=== PATIENT | male | born 1935 | race Caucasian/White ===

== ENCOUNTER 2017-06-30 03:14 | Inpatient (IN) | payer OTHER ==
[~2017-06-30] VITALS: Ht 165.1 cm; Wt 79.8 kg
[~2017-06-30 03:14] MED LIST: AUGMENTIN 500-1 EACH; CELEBREX200 M1 PO; COUMADIN2.5 M1 PO; COUMADIN5 M2 PO; DOCUSATE SODIU100 M3 PO; ELIQUIS2.5 M1 PO; FLOMAX0.4 M1; GABAPENTIN600 M1 PO; LISINOPRIL40 M1 PO; MAGNESIUM400 M1 PO; MOBIC15 M1 PO; PERCOCET 5-3251 EACH PO; PROSCAR5 M1 PO; [UNRECOGNIZED DRUG - CODE] IV
[2017-06-30 06:31] LABS: ABSOLUTE BASOPHIL COUNT 0 /CUMM (0.0-0.2); ABSOLUTE EOSINOPHIL COUNT 0.4 /CUMM (0.0-0.7); ABSOLUTE GRANULOCYTE CT 5.3 /CUMM (1.4-6.5); ABSOLUTE LYMPH COUNT 1.8 /CUMM (1.2-3.4); ABSOLUTE MONOCYTE COUNT 0.8 /CUMM (0.10-0.60); BASOPHIL % 0.3 % (0.0-2.0); GRANULOCYTE % 63.3 % (42.2-75.2); HEMATOCRIT 38.5 % (42-52); MEAN CORPUSCULAR HGB 28.8 PG (27.0-31.0); MEAN CORPUSCULAR VOLUME 87.3 FL (80.0-94.0); MEAN PLATELET VOLUME 6.7 FL (7.4-10.4); PLATELET COUNT 380 /CUMM (130-400); RBC DISTRIBUTION WIDTH 14.6 % (11.5-14.5); RED BLOOD CELL CT 4.42 /CUMM (4.70-6.10); WHITE BLOOD CELL COUNT 8.3 /CUMM (4.8-10.8)
--- NOTE | 2017-06-30 11:45 | Operative Report ---
Operative/Inv Procedure Report Surgery Date: 06/30/17 Name of Procedure: #1 removal of antibiotic cement spacer left knee #2 biopsy femoral canal left #3 reimplantation/revision total knee arthroplasty left Pre-Operative Diagnosis: History of infected left knee, status post antibiotic cement spacer insertion and irrigation debridement Post-Operative Diagnosis: Same Estimated Blood Loss: 1 50 mL Surgeon/Information Officer: Shelley MCQUEEN,Drake Genao Anesthesia: block Implants: [place] triathlon total knee revision system-size 5 femur with a 17 mm x 100 stem with a 25 mm extension stem Size 5 tibia with a 13 x 100 mm stem, 16 mm TS polyethylene insert Drains: None Specimens: Antibiotic impregnated cement spacer, synovial fluid, membrane from femoral canal Microbiology: Synovial fluid, membrane from femoral canal, urine Tourniquet: 93 minutes, 21 minutes Complications: None Condition: Stable Operative Indication: Patient is an 82-year-old man with a history of total knee arthroplasty several years ago that needed to be revised for loosening of the femoral component. Following that procedure, patient advanced as expected but in follow-up developed increased pain, swelling and workup revealed an acute septic left knee. Workup revealed the organism being strep bovis. Despite being an acute presentation, we discussed options of irrigation and debridement and polyethylene exchange versus 2 stage procedure. After discussion, patient wished to proceed with two-stage procedure which would be less likely to result in recurrent infection. However, patient understood that eradication of the infection is the primary goal in this would dictate whether there would be recurrence. Patient underwent the first stage of that procedure which included explantation, irrigation debridement and antibiotic impregnated cement spacer insertion followed by IV antibiotics for 6 weeks. Clinically, and follow-up, patient showed no signs of recurrent infection. The antibiotics were stopped at a proximally 6 weeks and monitored over the week following this. Lab values improved but did not normalize. Clinically, patient had no signs of effusion, swelling, erythema or even warmth to touch during treatment and after treatment. No significant fluid could be aspirated from the knee and therefore this would be a good sign that there was no definite recurrent infection. However there was lc discussion concerning the risk of recurrent infection because of the history. Patient understood that there would be a more difficult rehabilitation course following a revision of a revision. Range of motion would be more difficult to restore as he had done after his primary surgeries. He wished to proceed with surgical management and proceed with the plan of removal of the cement spacer, debridement, intraoperative biopsy and specimen collection followed by revision reimplantation of a total knee arthroplasty as long as the intraoperative findings showed no definite signs of ongoing infection. If there were signs of infection, then would need to irrigate debride and inserted another antibiotic spacer. Patient was very concerned about that possibility as we were as well. Risks benefits and expectations of the surgical procedure were discussed included but were not needed to persistent knee pain, need for subsequent surgery, stiffness, injury to blood vessel or nerve, anesthesia risks early loosening, DVT Operative/Procedure Note Note: Patient was brought to the operating room and transferred to the operating table. Once under appropriate anesthesia the left lower extremity was prepped and draped in standard fashion. Preoperative IV antibiotics were given prophylactically. The leg was elevated exsanguinated and tourniquet was inflated. The previous incision was used. Incision was taken down sharply to the underlying retinaculum. A medial retinacular approach was made. No sign of any significant knee effusion. The small amount of fluid that we're able to aspirate was sent to the lab for stat Gram stain. Also, soft tissue was sent at this point time but also later on the case once her able to approach the femoral canal. The antibiotic cement spacer was removed in piecemeal fashion. I used a long curet was able to obtain membrane from within the femoral canal. This was sent as a stat Gram stain as well as frozen section to determine if there was any significant number of white cells per high-powered field. While waiting for the results I proceeded to continue with debridement. Soft tissue planes and lateral and medial gutters were re-created to facilitate in restoring range of motion. Once the spacer was removed and we're able to flex the knee to approximately 100 and then proceeded to debridement any remaining soft tissue over the top of the tibial surface as well as the femoral surface. All soft tissues were debrided. Copious irrigation followed. No evidence of any fluid collections or purulence. No definite evidence of necrotic bone was noted. This would be confirmed later on when we declared deflated the tourniquet. Once we exposed the tibial we proceeded to prepare the tibia. Power reaming up to a size 13. Size 13 reamer was left in place and then the tibial cutting the guide was pinned in place for a neutral cut from medial to lateral and from anterior to posterior. The cut was made while protecting the soft tissues. The tibia was sized to a size 5. We reamed up to a size 16 in the proximal section to allow for insertion of the anticipated component. I then determine rotation and offset. 4, 9 offsets were chosen that covered the tibial surface properly medial to lateral and anterior to posterior. We fashioned the trial component the tibia impacted in position after creating the final tibial punch. I was satisfied with the flush surface of the tibia as well as the rotation of the tibia in relationship to the tibial tubercle and using the alignment guide of the system. The left the tibial component place and turned my attention to the femur. The reamers were used up to a size 17. The depth was determined by anticipated use of a 100 mm stem plus the 25 mm extension. I left the last reamer in place and prepared my freshening cuts of the distal femur. Patient did have decent distal femoral bone quality. I determine the position of my medial femoral condyle and based the distal femoral augments on this. There is small amount of bone was taken off of the surfaces to freshen these surfaces. The medial femoral condyle would need a 5 mm augment distally. The lateral femoral condyle did not needed to augment. I then proceeded with trialing since I did not need to go ahead with the chamfer cut since previous chamfer cuts were made for this prosthesis during the revision that occurred previously. During the procedure we did receive were from the pathology department and micro-as far as the intraoperative specimens. There was no definite signs of infection based on the verbal report. We continued to proceed with the case. I constructed the trial component the femur and impacted in place. Patient would also need posterior condylar augments medially. No augment was needed laterally. I did a trial reduction with the constructed femoral component and the tibial component which are left in place. Trial polyethylenes were used to confirm balancing of ligaments. The knee was taken out to full extension with an 13 mm polyethylene but it appeared that he would need a larger polyethylene component. This would be confirmed later on the case. I then turned my attention to preparing the patella. The remaining soft tissue membrane over the patella was removed using curettes. I then freshened this patellar surface and measured it to a 33 patella. 3 lug holes were drilled and I did a trial. I was satisfied with this. All trial component then removed copious irrigation of the knee followed. Cement was being mixed on the back table the tourniquet was deflated prior to this in order to prepare the definitive components on the back table which usually takes a period of time. During this 15 minute interval irrigation and preparation of the bony surfaces was completed. Once the cement was about to be mixed I elevated leg and exsanguinated the lower extremity. Tourniquet was reinflated. All bony surfaces were copiously irrigated and dried the cement used was the tobramycin-impregnated cement and I added 1 g of vancomycin. This was applied to the dry clean bony surfaces of the tibia. The size 5 tibial component was impacted in place and excess cement was removed with curettes. Cement was applied to the dry clean bony surfaces of the femur. The size 5 femur was impacted in place and excess cement was removed with curettes. The 13 mm polyethylene was inserted to pressurize. Cement was applied to the dry clean bony surfaces of the patella. The size 33 patella was impacted in place and excess cement was removed with a knife. I did a periarticular pericapsular injection of ropivacaine with epinephrine and Toradol for postoperative pain and inflammation management. Once the cement hardened I took the knee through range of motion. I did a trial 16 mm polyethylene. I was satisfied with the stability in flexion and mid flexion. No sign of instability. Copious irrigation tibial tray followed. I then inserted the definitive size 16 TS polyethylene component. Locking mechanism was confirmed. I placed the peg in place to lock it in place. Took the knee through range of motion. I was satisfied with this. Copious irrigation followed every level closure the tourniquet was deflated once again hemostasis was obtained. The quadriceps tendon snip was repaired anatomically. The retinaculum and medial quadriceps was repaired with interrupted #1 Vicryl sutures. Subcutaneous tissues closed in 2 layers with 2-0 Vicryl and skin was closed with herman. Appropriate dressings were applied and patient was awakened and taken to recovery room in good condition. No intraoperative Complications. Discharge Disposition: PACU
--- NOTE | 2017-06-30 13:31 | Admission Core Measures ---
Acute Coronary Syndrome (CM) ACS Core Measures Acute Coronary Syndrome Diagnosis No Congestive Heart Failure (NEW) CHF Core Measures Congestive Heart Failure Diagnosis No Cerebrovascular Accident (NEW) CVA Core Measures CVA/TIA Diagnosis No Venous Thromboembolism VTE Core Cosme (View Protocol) VTE Risk Factors Surgery No Mechanical VTE Prophylaxis d/t N/A MechProphylax Ordered No VTE Pharm Prophylaxis d/t NA PharmProphylax ordered Problem List As ranked by this Provider includes Assessment & Plan 1. Status post revision of total replacement of left knee HOME MEDS Home Med List Apixaban (Eliquis) 2.5 MG TABLET 1 TAB PO BID ANTICOAGULATION Finasteride (Proscar) 5 MG TABLET 1 TAB PO DAILY BPH (Reported) Gabapentin 600 MG TABLET 2 TAB PO QHS PAIN (Reported) Lisinopril 40 MG TABLET 1 TAB PO DAILY HTN (Reported) Magnesium Oxide (Magnesium) 400 MG CAPSULE 1 CAP PO DAILY SUPPLEMENT ( Reported) Oxycodone HCl/Acetaminophen (Percocet 5-325 MG Tablet) 5 MG-325 MG TABLET 1-2 TAB PO Q4-6H PRN PAIN
[2017-06-30 13:32] VITALS: BP 98/60
--- NOTE | 2017-06-30 13:35 | Patient Discharge Instructions ---
Discharge Instructions General Discharge Information You were seen/treated for: History of infected left total knee replacement, antibiotic spacer placement, need for revision left total knee replacement You had these procedures: Revision left total knee replacement with removal of antibiotic spacer Watch for these problems: Increasing pain despite the use of pain medication Increasing redness, warmth or swelling Drainage of any type from incision Inability to bear weight on operative leg Persistent nausea and vomiting Fever greater than 101.5 degrees Do not soak the wound: Yes No bath, but you may shower: Yes Other wound care: Please keep wound clean and dry. No ointments or lotions of any type on or near incision at any time. No exceptions. Your dressing will be changed by your nurse on the second day after your surgery. Daily dry dressing changes are recommended each day thereafter. Do not soak your wound in a bath at any time until otherwise indicated by your surgeon. You may shower, please dry wound immediately after shower with a clean towel. Special Instructions: Coumadin: Dr. Rosa has recommended that you take Coumadin for prevention of blood clot. The dose of Coumadin is subject to change on a daily basis. Lab work that is referred to as INR or PT will be taken on a weekly basis, sometimes more than 1 time per week. Your dose of Coumadin will depend on that lab work. Please be sure you have been in touch with Dr. Rosa or a real estate representative from his office prior to taking your Coumadin each day. It is important that you are taking the appropriate dose. you will also need to be on antibiotics (amoxicillin) for prevention of infection, take this as directed unitl your follow up visit. Diet Continue normal diet: Yes Recommended Diet: Regular Acute Coronary Syndrome Inclusion Criteria At DC or during hospital stay patient has or had the following: ACS DIAGNOSIS No Discharge Core Measures Meds if any: Prescribed or Continued at Discharge Meds if any: NOT Prescribed or Continued at Discharge Congestive Heart Failure Inclusion Criteria At DC or during hospital stay patient has or had the following: CHF DIAGNOSIS No Discharge Core Measures Meds if any: Prescribed or Continued at Discharge Meds if any: NOT Prescribed or Continued at Discharge Cerebrovascular accident Inclusion Criteria At DC or during hospital stay patient has or had the following: CVA/TIA Diagnosis No Discharge Core Measures Meds if any: Prescribed or Continued at Discharge Meds if any: NOT Prescribed or Continued at Discharge Venous thromboembolism Inclusion Criteria VTE Diagnosis No VTE Type NONE VTE Confirmed by (Test) NONE Discharge Core Measures - Per Current guidelines, there needs to be overlap - treatment for the first 5 days of Warfarin therapy. - If discharged on Warfarin prior to 5 days of - overlap therapy, the patient will need to be - assessed for post discharge needs including - *Post discharge parental anticoagulation - *Warfarin and/or parental anticoagulation education - *Follow up date to check INR post discharge At least 5 days overlap therapy as Inpatient No Meds if any: Prescribed or Continued at Discharge Note: Overlap Therapy is Warfarin and Anticoagulant Meds if any: NOT Prescribed or Continued at Discharge
--- NOTE | 2017-06-30 13:40 | Surgical Discharge Summary ---
Visit Information Visit Dates Admission Date: 06/30/17 Discharge Date: 07/04/17 History of Present Illness Chief Complaint: History of infected left total knee replacement with placement of antibiotic spacer, today is a conversion to total knee replacement Medical History Cardiovascular: hypertension Renal: benign prost hyperplasia Musculoskeletal: osteoarthritis History of MRSA: No History of VRE: No History of CDIFF: No Pneumonia Vaccine: 09/21/05 Surgical History Pertinent Surgical History: cataract removal, knee replacement (bilateral, L revision), bilateral rotator cuff surgery L tka explantation with abx cement spacer Psychosocial History Who Do You Live With? Spouse Services at Home: None What is Your Primary Language? Amharic Review of Systems: See H&P Hospital Course Course Attending Physician: Shelley MCQUEEN,[place] Primary Care Physician: Terence Hammonds MD Hospital Course: Patient was admitted to the hospital for an revision total joint replacement, removal of antibiotic spacer. The procedure was tolerated well and patient was transferred to a general surgical floor. Diet was advanced and tolerated, and the patient voided spontaneously. The patient was evaluated and treated by physical therapy. At the time of hospital discharge, the vital signs were stable, neurovascular status was intact, and pain was controlled with the use of oral pain medications. Complications: None Allergies: Coded Allergies: morphine (Severe, HALLUCINATIONS 06/30/17) Disposition Summary Disposition Principal Diagnosis: History of infected left total knee replacement with antibiotic spacer Additional Diagnosis: None Discharge Disposition: home health services Discharge Instructions General Discharge Information Code Status: Full Code Patient's Diet: Regular, advance as tolerated Patient's Activity: Weight-bear as tolerated Follow-Up Instructions/Appts: Follow up with Dr. Rosa in 2 weeks from date of surgery Medications at Discharge Discharge Medications: Stop taking the following medications: Apixaban (Eliquis) 2.5 MG TABLET ORAL TWICE DAILY Qty = 84 Continue taking these medications: Finasteride (Proscar) 5 MG TABLET 1 Tablet ORAL DAILY Comments: Last Taken: 05/08 Time: 9:00 AM Lisinopril (Lisinopril) 40 MG TABLET 1 Tablet ORAL DAILY Comments: Last Taken: 05/08 Time: 9:00 AM Magnesium Oxide (Magnesium) 400 MG CAPSULE 1 Capsule ORAL DAILY Comments: Last Taken: 05/08 Time: 9:00 AM Gabapentin (Gabapentin) 600 MG TABLET 2 Tablet ORAL TAKE AT BEDTIME Start taking the following new medications: Amoxicillin (Amoxicillin) 500 MG CAPSULE 500 Milligram ORAL THREE TIMES DAILY Qty = 40 No Refills Instructions: as per Tramadol HCl (Tramadol HCl) 50 MG TABLET 1-2 Tablet ORAL Every 6-8 Hours as Needed as needed for pain control Qty = 36 No Refills Warfarin Sodium (Coumadin) 5 MG TABLET 1 Tablet ORAL As Directed Qty = 30 No Refills Instructions: dose adjustment as per blood draws for PT/INR goal INR 2-3 Sennosides/Docusate Sodium (Senna Plus Tablet) 8.6 MG-50 MG TABLET 2 Tablet ORAL AT BEDTIME NEEDED as needed for CONSTIPATION Qty = 14 No Refills No Refills
--- NOTE | 2017-06-30 15:23 | PN- Orthopedic ---
Subjective Subjective: post-op Check Pt very sleepy in bed. Did not feel comfortable getting out of bed with physical therapy this afternoon, will try again tomorrow. castro in place. tolerated reg diet Denies Nausea, CP/SOB. Denies numbness in extremities Objective Vital Signs and I&Os Vital Signs Date Time Temp Pulse Resp B/P B/P Pulse O2 O2 Flow FiO2 Mean Ox Delivery Rate 06/30 1400 99 Nasal 2.0L Cannula 06/30 1332 97.3 73 16 98/60 99 Nasal 2.0L Cannula Intake & Output 06/30 1600 06/30 0800 06/30 0000 06/29 1600 06/29 0800 06/29 0000 Intake Total 75 Output Total Balance 75 Intake, IV 75 Patient 176 lb Weight Physical Exam: gen- NAD, keeps falling asleep resp- clear cardio-RRR abd- ND, soft, NT ext- distal motor and sensory funt intact. Left knee wrapped in alfonzo-bandage, dressing clean and dry. 2+ PT pulse bilaterally. feet warm and dry Assessment/Plan Assessment/Plan 82yo M SP Left knee revision POD0 ABX- Vanco DVT ppx- Coumadin and ALPS check am labs castro out in am reg diet PT- WBAT encourage IS continue regular home medications PO pain meds Core Measures Venous Thromboembolism VTE Risk Factors Surgery No Mechanical VTE Prophylaxis d/t N/A MechProphylax Ordered No VTE Pharm Prophylaxis d/t NA PharmProphylax ordered
[2017-06-30 16:20] VITALS: BP 120/66
[2017-06-30 20:00] VITALS: BP 126/58
[2017-06-30 22:22] VITALS: BP 110/60
[2017-07-01 02:00] VITALS: BP 122/84
[2017-07-01 06:00] VITALS: BP 100/54
--- NOTE | 2017-07-01 07:12 | PN- Orthopedic ---
See Addendum Subjective Subjective: Noted moderate to severe pain overnight, medication has helped. Pain in the left knee and left distal thigh region. No neurologic symptoms. No other complaints, no acute events overnight.. Zavala has been removed, awaiting void Objective Vital Signs and I&Os Vital Signs Date Time Temp Pulse Resp B/P B/P Pulse O2 O2 Flow FiO2 Mean Ox Delivery Rate 07/01 599 98.3 72 20 100/54 97 Nasal 1.0L Cannula 07/01 0200 97.6 70 20 122/84 99 Nasal 2.0L Cannula 07/01 0000 98 Nasal 3.0L Cannula 06/30 2222 97.9 81 20 110/60 98 Nasal Cannula 06/30 2000 98.1 73 18 126/58 97 Nasal Cannula 06/30 1620 97.6 85 20 120/66 96 Nasal Cannula 06/30 1600 99 Nasal 2.0L Cannula 06/30 1400 99 Nasal 2.0L Cannula 06/30 1332 97.3 73 16 98/60 99 Nasal 2.0L Cannula Intake & Output 07/01 0807/01 0000 06/30 1600 06/30 0800 06/30 0000 06/29 1600 Intake Total 1080 75 Output Total 600 Balance 480 75 Intake, IV 600 75 Intake, Oral 480 Output, Urine 600 Patient 176 lb Weight Physical Exam: Well-developed well-nourished no apparent distress. HEENT: Atraumatic, extraocular motion intact Neck: Supple, no lymphadenopathy Respiratory: No respiratory distress Extremities: No edema LEFT lower extremity dressing in place, Range of motion is 0-45. Compression wrap in place. ALPS in place Neurovascularly intact distally Bilateral calves are supple, nontender. Neuro: Alert and oriented x3 Psych: Mood affect normal, normal memory normal judgment. Skin: Warm and dry, no rash on exposed skin Results Last 48 Hours of Labs: Laboratory Tests 06/30 616 Chemistry Sodium (137 - 145 mmol/L) 141 Potassium (3.5 - 5.1 mmol/L) 4.0 Chloride (98 - 107 mmol/L) 100 Carbon Dioxide (22 - 30 mmol/L) 29 Anion Gap (5 - 16) 12 BUN (9 - 20 mg/dL) 13 Creatinine (0.7 - 1.2 mg/dL) 0.9 Estimated GFR (>60 ml/min) > 60 BUN/Creatinine Ratio (7 - 25 %) 14.4 Glucose (65 - 99 mg/dL) 92 Calcium (8.4 - 10.2 mg/dL) 9.3 Hematology CBC w Diff NO MAN DIFF REQ WBC (4.8 - 10.8 /CUMM) 8.3 RBC (4.70 - 6.10 /CUMM) 4.42 L Hgb (14.0 - 18.0 G/DL) 12.7 L Hct (42 - 52 %) 38.5 L MCV (80.0 - 94.0 FL) 87.3 MCH (27.0 - 31.0 PG) 28.8 MCHC (33.0 - 37.0 G/DL) 33.0 RDW (11.5 - 14.5 %) 14.6 H Plt Count (130 - 400 /CUMM) 380 MPV (7.4 - 10.4 FL) 6.7 L Gran % (42.2 - 75.2 %) 63.3 Lymphocytes % (20.5 - 51.1 %) 21.5 Monocytes % (1.7 - 9.3 %) 9.9 H Eosinophils % (0 - 5 %) 5.0 Basophils % (0.0 - 2.0 %) 0.3 Absolute Granulocytes (1.4 - 6.5 /CUMM) 5.3 Absolute Lymphocytes (1.2 - 3.4 /CUMM) 1.8 Absolute Monocytes (0.10 - 0.60 /CUMM) 0.8 H Absolute Eosinophils (0.0 - 0.7 /CUMM) 0.4 Absolute Basophils (0.0 - 0.2 /CUMM) 0 Assessment/Plan Assessment/Plan 82yo M SP Left knee revision POD1 Perioperative antibiotics completed DVT ppx- Coumadin and ALPS, follow INR, pending this morning, dose Coumadin accordingly check am labs Zavala removed, trial of void reg diet PT- WBAT encourage IS continue regular home medications PO pain meds Dressing change postop day 2 Core Measures Venous Thromboembolism VTE Risk Factors Surgery No Mechanical VTE Prophylaxis d/t N/A MechProphylax Ordered No VTE Pharm Prophylaxis d/t NA PharmProphylax ordered
[2017-07-01 08:48] LABS: ABSOLUTE BASOPHIL COUNT 0 /CUMM (0.0-0.2); ABSOLUTE EOSINOPHIL COUNT 0 /CUMM (0.0-0.7); EOSINOPHIL % 0 % (0-5); MEAN CORPUSCULAR HGB CONC 33.5 G/DL (33.0-37.0)
[2017-07-01 09:05] LABS: ABSOLUTE GRANULOCYTE CT 8.6 /CUMM (1.4-6.5); ABSOLUTE LYMPH COUNT 0.8 /CUMM (1.2-3.4); BASOPHIL % 0.1 % (0.0-2.0); MEAN CORPUSCULAR HGB 28.6 PG (27.0-31.0); MEAN CORPUSCULAR VOLUME 85.4 FL (80.0-94.0); MEAN PLATELET VOLUME 7.3 FL (7.4-10.4); PLATELET COUNT 271 /CUMM (130-400); RBC DISTRIBUTION WIDTH 14.1 % (11.5-14.5); WHITE BLOOD CELL COUNT 10.4 /CUMM (4.8-10.8)
[2017-07-01 09:11] LABS: HEMATOCRIT 25.4 % (42-52); RED BLOOD CELL CT 2.98 /CUMM (4.70-6.10)
[2017-07-01 14:32] VITALS: BP 100/60
[2017-07-01 22:17] VITALS: BP 130/58
[2017-07-02 07:50] VITALS: BP 108/54
--- NOTE | 2017-07-02 07:53 | PN- Orthopedic ---
See Addendum Subjective Subjective: No acute overnight events reported. Pain worsening but responding to pain regimen. Has been oob. No c/o chest pain, shortness of breath and difficulty breathing. No c/o nausea, vomitting, dizziness. Has been tolerating po. Has been voiding. Objective Vital Signs and I&Os Vital Signs Date Time Temp Pulse Resp B/P B/P Pulse O2 O2 Flow FiO2 Mean Ox Delivery Rate 07/01 2216 98.6 86 20 130/58 96 07/01 1600 Room Air 07/01 1432 98.2 68 18 100/60 97 Intake & Output 07/02 0800 07/02 0000 07/01 1600 07/01 0800 07/01 0000 06/30 1600 Intake Total 338 061 7417 1080 75 Output Total 125 2200 1450 1550 600 Balance -125 -1370 -820 -350 480 75 Intake, IV 30 150 600 600 75 Intake, Oral 800 480 600 480 Number 0 0 Bowel Movements Output, Urine 125 2200 1450 1550 600 Patient 176 lb Weight Physical Exam: General: Alert and oriented x3, no acute distress Cardiac: RRR, s1s2 Pulm: CTA bilaterally ABD: Soft, non-tender, non-distneded Extremties: Moves all extremities, distal sensation intact. Skin warm and well perfused. Dp pulses palpable bilaterally. Bilateral calves soft and non-tender Surgical site: Left knee. Dressing changed. Skin edges well approximated with herman, no drainage. Expected swelling. Assessment/Plan Assessment/Plan This is a 82 year old male, POD 2, s/p revision L tkr for septic joint, s/p antibiotic spacer. PMH includes: htn, bph -Amoxicillin 500 tid -Continue current pain regimen -Incentive spirometer encouraged -Follow up labs, monitoring h/h, pt currently asymptomatic -Daily dry dressing changes, avoid tape due to potential for blistering/skin irriation -Continue coumadin for dvt ppx, dose per INR, target INR 2.5 -Activity: OOB, wbat, full ROM, full extension encouraged by Dr. Rosa this am at bedside -Anticipate dc to home tomorrow Core Measures Venous Thromboembolism VTE Risk Factors Surgery No Mechanical VTE Prophylaxis d/t N/A MechProphylax Ordered No VTE Pharm Prophylaxis d/t NA PharmProphylax ordered
[2017-07-02 09:05] LABS: ABSOLUTE BASOPHIL COUNT 0 /CUMM (0.0-0.2); ABSOLUTE EOSINOPHIL COUNT 0.4 /CUMM (0.0-0.7); ABSOLUTE LYMPH COUNT 1.9 /CUMM (1.2-3.4); ABSOLUTE MONOCYTE COUNT 1.3 /CUMM (0.10-0.60); BASOPHIL % 0.3 % (0.0-2.0); EOSINOPHIL % 3.6 % (0-5); GRANULOCYTE % 66.2 % (42.2-75.2); HEMATOCRIT 27.1 % (42-52); MEAN CORPUSCULAR HGB 28.4 PG (27.0-31.0); MEAN CORPUSCULAR HGB CONC 33.3 G/DL (33.0-37.0); MEAN CORPUSCULAR VOLUME 85.3 FL (80.0-94.0); MEAN PLATELET VOLUME 7.6 FL (7.4-10.4); PLATELET COUNT 288 /CUMM (130-400); RBC DISTRIBUTION WIDTH 14.4 % (11.5-14.5); RED BLOOD CELL CT 3.18 /CUMM (4.70-6.10); WHITE BLOOD CELL COUNT 10.6 /CUMM (4.8-10.8)
--- NOTE | 2017-07-02 12:32 | RADIOLOGY REPORT ---
EXAMINATION: CR KNEE, LEFT CLINICAL INFORMATION: Status post total knee arthroplasty. COMPARISON: Left knee films dated 02/12/2017. TECHNIQUE: Frontal and lateral of the left knee performed on 3 images. FINDINGS: Postsurgical changes as seen in the soft tissues with prominent soft tissue swelling and emphysematous changes seen anteriorly in the joint and in the adjacent soft tissues. Midline cutaneous suture line is noted. The total left knee arthroplasty is intact with no evidence of hardware failure. Alignment is anatomic. IMPRESSION: Anatomic alignment status post total knee arthroplasty revision. Expected postsurgical changes are seen in the soft tissues.
[2017-07-02 14:29] VITALS: BP 100/64
[2017-07-02 22:32] VITALS: BP 112/60
--- NOTE | 2017-07-03 07:40 | PN- Orthopedic ---
Subjective Subjective: L knee pain that is controled with meds. no fever or illness. states he is having difficluty with motion due to pain. Objective Vital Signs and I&Os Vital Signs Date Time Temp Pulse Resp B/P B/P Pulse O2 O2 Flow FiO2 Mean Ox Delivery Rate 07/02 2232 99.4 88 18 112/60 94 Room Air 07/02 1429 99.4 91 16 100/64 98 07/02 0808 98.8 93 20 108/54 07/02 0808 98.8 93 20 108/54 07/02 0800 95 Nasal 2.5L Cannula 07/02 0750 98.8 93 20 108/54 90 Room Air Intake & Output 07/03 0800 07/03 0000 07/02 1600 07/02 0800 07/02 0000 07/01 1600 Intake Total 480 800 400 830 870 Output Total 1150 4011 766 6845 1450 Balance -670 -800 -550 -1370 -580 Intake, IV 0 30 150 Intake, Oral 480 800 400 800 720 Number 1 0 0 Bowel Movements Output, Urine 1150 8269 924 3322 1450 Physical Exam: wdwn, oax3, nad no resp distress. LLE- incision cdi, marginal erythema, moderate swelling, global tenderness and mild warmth. no drainage. ROM 0-30 w pain nvi no calf pain. Assessment/Plan Assessment/Plan POD#3 sp revision L TKA follow labs today, hyponatremia yesterday regular diet coumadin per INR, pending this am pain meds as needed cont amoxil until follow up PT plan for dc later today, home w vna, if he does well w PT and pain is controlled. Core Measures Venous Thromboembolism VTE Risk Factors Surgery No Mechanical VTE Prophylaxis d/t N/A MechProphylax Ordered No VTE Pharm Prophylaxis d/t NA PharmProphylax ordered
[2017-07-03] MEDS ORDERED: AMOXICILLIN500 M2 PO (07:43)
[2017-07-03] MEDS ORDERED: SENNA PLUS TAB1 EACH PO (07:43)
[2017-07-03] MEDS ORDERED: PERCOCET 5-3251 EACH PO (07:44)
[2017-07-03] MEDS ORDERED: OXYCODONE HCL5 M1 PO (09:21)
[2017-07-03] MEDS ORDERED: COUMADIN5 M2 PO (09:21)
[2017-07-03] MEDS ORDERED: COUMADIN2 M1 PO (09:21)
[2017-07-03] MEDS ORDERED: TRAMADOL HCL50 M1 PO ×2 (09:40→09:47)
[2017-07-03 10:55] LABS: PT 21.9 SEC (9.4-12.5)
[2017-07-03 14:56] VITALS: BP 120/60
[2017-07-03 22:09] VITALS: BP 120/68
[2017-07-04 06:57] VITALS: BP 120/68
--- NOTE | 2017-07-04 07:37 | PN- Orthopedic ---
See Addendum Subjective Subjective: Feeling better today than yesterday, pain is better controlled, no acute events overnight, no confusion Objective Vital Signs and I&Os Vital Signs Date Time Temp Pulse Resp B/P B/P Pulse O2 O2 Flow FiO2 Mean Ox Delivery Rate 07/04 0657 98.0 68 20 120/68 98 Room Air 07/03 2209 98.8 78 20 120/68 97 Room Air 07/03 1456 98.6 87 16 120/60 98 07/03 0958 82 126/60 07/03 0950 99.5 82 16 126/60 Intake & Output 07/04 0000 07/03 1600 07/03 0800 07/03 0000 07/02 1600 Intake Total 600 360 480 800 Output Total 700 674 169 7588 1600 Balance -100 -825 110 -670 -800 Intake, Oral 600 360 480 800 Number 3 3 1 Bowel Movements Output, Urine 700 962 020 8135 1600 Physical Exam: Well-developed well-nourished no apparent distress. HEENT: Atraumatic, extraocular motion intact Neck: Supple, no lymphadenopathy Respiratory: No respiratory distress Extremities: No edema left lower extremity dressing in place, Incision line is clean dry and intact. Minimal marginal erythema. No signs of infection. Mild joint effusion Range of motion is 0-30. AL[address] Neurovascularly intact distally Bilateral calves are supple, nontender. Neuro: Alert and oriented x3 Psych: Mood affect normal, normal memory normal judgment. Skin: Warm and dry, no rash on exposed skin Assessment/Plan Assessment/Plan Postop day 4 status post left total knee arthroplasty revision Hyponatremia resolved regular diet coumadin per INR, pending this am pain meds as needed cont amoxil until follow up PT plan for dc later today, home w vna, if he does well w PT and pain is controlled. Core Measures Venous Thromboembolism VTE Risk Factors Surgery No Mechanical VTE Prophylaxis d/t N/A MechProphylax Ordered No VTE Pharm Prophylaxis d/t NA PharmProphylax ordered
[2017-07-04 09:28] LABS: PT 27.1 SEC (9.4-12.5)
[2017-07-04] MEDS ORDERED: AMOXICILLIN500 M2 PO (12:15)
[2017-07-04] MEDS ORDERED: COUMADIN5 M2 PO (12:15)
[2017-07-04] MEDS ORDERED: TRAMADOL HCL50 M1 PO (12:15)
[2017-07-04] MEDS ORDERED: DIAZEPAM2 M1 PO (12:19)
== END 2017-07-04 13:23 | disposition home health service (06) | DRG 467 ==
LOC: SDA 03:14 → ENRESERV 12:08 → ENTRNSPT 12:37 → EDTRNSPTSTS 13:02 → EDTRNSPT 13:02 → 2NA 13:13 → CMPTRNSPT 13:23 → ENPENDDIS 07-04 12:33 → ENTRNSPT 07-04 13:16 → CMPTRNSPT 07-04 13:18 → 2NA 07-04 13:23
PROVIDERS: Nurse Practitioner; Orthopaedic Surgery; Physician Assistant; Physician Assistant Surgical
PROC: 0SRD0J9 Replacement of Left Knee Joint with Synthetic Substitute, Cemented, Open Approach (ICD-10-PCS; principal; 2017-06-30)
PROC: 0SPD08Z Removal of Spacer from Left Knee Joint, Open Approach (ICD-10-PCS; 2017-06-30)
PROC: 0QBC0ZX Excision of Left Lower Femur, Open Approach, Diagnostic (ICD-10-PCS; 2017-06-30)
DX: M21.862 Other specified acquired deformities of left lower leg (principal); E87.1 Hypo-osmolality and hyponatremia; I10 Essential (primary) hypertension; M17.12 Unilateral primary osteoarthritis, left knee; N40.0 Benign prostatic hyperplasia without lower urinary tract symptoms
CPT/HCPCS: 2NAP; 87070; 87075; 36415; 73560-LT; 82436; 87086; 97110-GO; 97116-GO; 97161-GP; 97530-GO; C1713; EXP; J0131; J0171; J1100; J1885; J2405; J2795; J3370; J3490; J7040; J7060